=== PATIENT | male | born 1965 | race Caucasian/White ===

== ENCOUNTER 2016-03-30 13:22 | Outpatient (CLI) ==
[2016-03-19 17:30] VITALS: BMI 22.9
--- NOTE | 2016-03-30 13:45 | DI ---
EXAM: Five views of the lumbar spine. History: Lower back pain. Findings: 4 mm calcification projecting over the inferior pole of the right kidney. Atherosclerotic vascular calcifications. No acute fracture or subluxation. Posterior fusion hardware from L4-S1 i s grossly intact. Mild to moderate disc space narrowing at L3-L4 with small anterior osteophytes. Impression: 1. No acute osseous abnormality of the lumbar spine. 2. Grossly intact posterior fusion hardware. 3. Right nephrolithiasis.
== END 2016-03-30 13:23 | disposition home or self-care (01) ==
LOC: RAD 13:22
PROVIDERS: ATTEND Pain Medicine Interventional Pain Medicine
DX: M51.36 Other intervertebral disc degeneration, lumbar region (principal); M51.37 Other intervertebral disc degeneration, lumbosacral region

== ENCOUNTER 2018-04-18 14:10 | Outpatient (CLI) | payer OTHER ==
[2016-03-19 17:30] VITALS: BMI 22.9
--- NOTE | 2018-04-19 09:17 | DI ---
EXAM: CERVICAL SPINE, 5 VIEWS HISTORY: Disc disease. Normal bone density. Mild anterior osteophytic spurring at C6. Normal vertebral body height and ali gnment. Facet joints appear normal. There is no scoliosis. Lateral masses of C1 and C2 are normal ly aligned and the odontoid process is intact. The oblique views reveal no bony encroachment upon th e neural foramina. IMPRESSION: 1. Mild/early degenerative disc disease at C6/C7. Otherwise unremarkable.
== END 2018-04-18 14:11 | disposition home or self-care (01) ==
LOC: RAD 14:10
PROVIDERS: ATTEND Pain Medicine Interventional Pain Medicine
DX: M50.13 Cervical disc disorder with radiculopathy, cervicothoracic region (principal); M50.33 Other cervical disc degeneration, cervicothoracic region; M50.31 Other cervical disc degeneration, high cervical region; G56.02 Carpal tunnel syndrome, left upper limb